=== PATIENT | female | born 1990 | race Caucasian/White ===

== ENCOUNTER 2022-08-14 18:19 | Emergency (ER) | payer OTHER, SELFPAY ==
[2022-08-14 18:25] VITALS: BP 141/93; PULSE 91; RESP 18; TEMP 37; O2SAT 99
--- NOTE | 2022-08-14 18:34 | ED.EAR ---
HPI - Ear Problem General Chief complaint: Ear Stated complaint: left Ear Time Seen by Provider: 08/14/22 18:25 Source: patient and RN notes reviewed History of Present Illness HPI Narrative: Patient is a 31-year-old female who presents to urgent care with complaints of left ear muffling and discomfort. Patient states that she is put water peroxide in it and is now noticing some decreased hearing. Denies any other upper respiratory complaints or fever. No other acute complaints. No acute distress noted. Patient aware of the plan care. Some parts of this dictation were generated by voice recognition software and may contain typographical and/or grammatical inaccuracies. Related Data Home Medications Medication Instructions Recorded Confirmed albuterol sulfate 90 mcg/actuation 2 puff inhalation Q4-6H PRN 08/14/22 08/14/22 aerosol inhaler Shortness Of Breath budesonide-formoterol HFA 160 2 puff inhalation DAILY 08/14/22 08/14/22 mcg-4.5 mcg/actuation aerosol inhaler (Symbicort) buspirone 10 mg tablet 10 mg PO QID 08/14/22 08/14/22 lithium carbonate 300 mg 300 mg PO QID 08/14/22 08/14/22 tablet,extended release Allergies Allergy/AdvReac Type Severity Reaction Status Date / Time tramadol AdvReac Mild Nausea Verified 08/14/22 18:31 Review of Systems Review of Systems: CONSTITUTIONAL: Denies fever, chills, or sweats. EYES: Denies visual changes, redness, or discharge. ENT: Denies rhinorrhea, congestion, sore throat. Reports of left otalgia with decreased hearing CARDIOVASCULAR: Denies chest pain, palpitations, or edema. RESPIRATORY: Denies cough or dyspnea. GASTROINTESTINAL: Denies abdominal pain, nausea, vomiting, or diarrhea. GENITOURINARY: Denies dysuria or hematuria. SKIN: Denies rash or itching. MUSCULOSKELETAL: Denies back pain, joint pain, or myalgia. NEUROLOGIC: Denies headache, numbness, or weakness. All other systems reviewed are negative, except as documented in HPI. PMFSH Comments At the time of my signature, I reviewed and agree with the nursing past medical, surgical, social, and family history. There is no relevant family history pertinent to the patient complaint. Exam Narrative: GENERAL: This is a well-nourished, well-developed patient, in no apparent distress. HEAD: normocephalic, atraumatic. EYES: PERRL. Sclera clear/white. Vision is grossly intact. EARS: External ears normal, right auditory canals clear and without drainage, unable to visualize left TM due to cerumen impaction. Right TM normal without perforation. Hearing grossly intact. NOSE: External nose normal with no obvious nasal discharge, nares without redness, no rhinorrhea. THROAT: Mucous membranes moist NECK: Neck supple SKIN: warm, intact with no suspicious lesions or rash, good texture and turgor. NEURO: awake, alert, and oriented to person, place and time. There were no obvious focal neurologic abnormalities. EXTREMITIES: No clubbing, cyanosis, or edema. Course Course Level of Care: Express Care Visit Vital Signs Vital signs: Vital Signs Temperature 98.6 F 08/14/22 18:25 Pulse Rate 91 08/14/22 18:25 Respiratory Rate 18 08/14/22 18:25 Blood Pressure 141/93 H 08/14/22 18:25 Pulse Oximetry 99 08/14/22 18:25 Oxygen Delivery Room Air 08/14/22 18:25 Temperature 98.6 F 08/14/22 18:25 Pulse Rate 91 08/14/22 18:25 Respiratory Rate 18 08/14/22 18:25 Blood Pressure 141/93 H 08/14/22 18:25 Pulse Oximetry 99 08/14/22 18:25 Oxygen Delivery Room Air 08/14/22 18:25 Reviewed- Patient is informed that they may have pre-hypertension or hypertension based on a blood pressure reading in the department. I recommend the patient call the primary care provider listed on their discharge instructions or a physician of their choice this week to arrange follow-up for further evaluation of possible pre-hypertension or hypertension. Procedures Ear Wax Removal Left Ear: Cerumenolytic Used: ot
== END 2022-08-14 19:00 | disposition home or self-care (01) ==
PROVIDERS: Emergency Provider Nurse Practitioner Family; PCP Nurse Practitioner Family
DX: H66.92 Otitis media, unspecified, left ear (principal); H61.22 Impacted cerumen, left ear; F41.9 Anxiety disorder, unspecified; F31.9 Bipolar disorder, unspecified
CPT/HCPCS: 69210; 99203; G0463

== ENCOUNTER 2024-02-11 16:03 | Emergency (ER) | payer OTHER, SELFPAY ==
[2024-02-11 16:10] VITALS: BP 155/91; PULSE 95; RESP 16; TEMP 36.9; O2SAT 98
--- NOTE | 2024-02-11 16:33 | ED.EAR ---
HPI - Ear Problem General Chief complaint: Ear Stated complaint: right ear Time Seen by Provider: 02/11/24 16:28 Source: patient, RN notes reviewed and old records reviewed Mode of arrival: ambulatory Limitations: no limitations History of Present Illness HPI Narrative: 33 year old female presents to [facility] care with complaints of 3 day history of right ear pain with no drainage from her ear noted. Patient reports that she has pain which is sharp at times, pressure to her right ear which is constant, has taken Tylenol and Ibuprofen for her discomfort without relief. Patient reports no fevers or any other ill symptoms. MD Complaint: ear pain and other (right ) Location: right ear Duration: constant Severity: moderate Discharge from ear: Reports no Treatment prior to arrival: oral analgesic (Tylenol/ibuprofen) Related Data Home Medications Medication Instructions Recorded Confirmed albuterol sulfate 90 mcg/actuation 2 puff inhalation Q4-6H PRN 08/14/22 02/11/24 aerosol inhaler Shortness Of Breath buspirone 10 mg tablet 10 mg PO QID 08/14/22 02/11/24 lithium carbonate 300 mg 300 mg PO QID 08/14/22 02/11/24 tablet,extended release cholecalciferol (vitamin D3) 10 10 mcg PO DAILY 02/11/24 02/11/24 mcg (400 unit) capsule (Vitamin D3) ferrous sulfate 325 mg (65 mg mg 02/11/24 iron) tablet (Iron (ferrous sulfate)) magnesium 200 mg tablet 200 mg PO DAILY 02/11/24 02/11/24 nicotine 21 mg/24 hr daily See Rx Instructions .Route .COMPLEX 02/11/24 02/11/24 transdermal patch Allergies Allergy/AdvReac Type Severity Reaction Status Date / Time tramadol AdvReac Mild Nausea Verified 02/11/24 16:21 Review of Systems Review of Systems: CONSTITUTIONAL: Denies malaise, chills, sweats, or fever. EYES: Denies visual changes, redness, or discharge. ENT: Reports no rhinorrhea, congestion, sinus pain, positive for sharp pain and pressure to right ear, no sore throat. CARDIOVASCULAR: Denies chest pain, palpitations, or edema. RESPIRATORY: Reports no cough.? Denies dyspnea. GASTROINTESTINAL: Denies abdominal pain, nausea, vomiting, diarrhea SKIN: Denies rash or itching. MUSCULOSKELETAL: Denies myalgia. NEUROLOGIC: Denies headache. 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 There is no relevant family history pertinent to the presenting complaint Exam Narrative: GENERAL: Well-appearing, well-nourished, and in no acute distress. HEAD: Normocephalic EYES: PERRLA, conjunctivae clear ENT: Nares clear, turbinates edematous and erythematous, clear discharge. Mucous membranes moist.Right TM with redness and bulging, Left TM pearly landaverde with dull light reflex bilaterally; no tragal tenderness. Oropharynx erythematous without lesions. Tonsils not enlarged and without exudate, no drooling, no hoarseness, no trismus, uvula midline. NECK: Supple. No lymphadenopathy CHEST: Clear to auscultation, breath sounds equal. No wheezing, rhonchi, rales, or stridor. No respiratory distress, speaks in full sentences SAO2 98% on room air no cough noted. HEART: Regular rate and rhythm. No murmur heard. SKIN: Warm, dry, no rash. NEURO: A
== END 2024-02-11 16:45 | disposition home or self-care (01) ==
PROVIDERS: Emergency Provider Registered Nurse; PCP Nurse Practitioner Family
DX: H66.91 Otitis media, unspecified, right ear (principal); F17.210 Nicotine dependence, cigarettes, uncomplicated; J45.909 Unspecified asthma, uncomplicated; E03.9 Hypothyroidism, unspecified; F41.9 Anxiety disorder, unspecified; F31.9 Bipolar disorder, unspecified
CPT/HCPCS: 99213; G0463

== ENCOUNTER 2024-10-24 08:05 | Emergency (ER) | payer OTHER, SELFPAY ==
--- NOTE | ~2024-10-24 | XR_ITS ---
EXAMINATION: XR chest 2V DATE: 10/24/2024 08:40 INDICATION: Cough TECHNIQUE: PA and lateral views of the chest were obtained. COMPARISON: None FINDINGS: A pleural parenchymal scarring at the lateral right lung base with blunting at the costophrenic angle but not the posterior sulcus. No focal airspace opacities, pulmonary edema, pleural effusion or pneu mothorax. Mild thoracic spondylosis with chronic appearing mild anterior wedging at T8, T11 and T12. IMPRESSION: 1. No acute cardiopulmonary disease. Reviewed, dictated and finalized at location A.
--- OUTSIDE RECORDS SUMMARY | 2024-10-24 08:07 | XMS_ITS | Encounter Summary ---
Author Organization [facility] Address [address] [place] [address] Phone Care Team Providers Care Compensation/Benefits Specialist Name Role Phone Gisele, Cornelia Denis APRN, APPAREL CUTTER Primary Care Provider Esther Cleary APRN, LACEY Unavailable Encounter Details Date Type Department Care Team (Latest Contact Info) Description 10/12/2024 Results Follow-Up [facility] Oncology Services [address] [place] [id number] Tiffanie Sosa Gloria, PAC [address] [place] [address] ANTINUCLEAR ANTIBODY (REZA), TITER IF POS, IMMUNOFIXATION W/ ELECTROPHORESIS SERUM, PERIPHERAL BLOOD, FLOW CYTOMETRY, Additional followed-up results: 4 Social History Tobacco Use Types Packs/Day Years Used Date Smoking Tobacco: Former Cigarettes 1 14 0 07/2024 - 2001 Smokeless Tobacco: Never Alcohol Use Standard Drinks/Week Comments Yes 0 (1 standard drink = 0.6 oz pur e alcohol) ocassionally Sexually Active Control Partners Comments Yes Male Comments No Sex and Gender Information Value Date Recorded Sex Assigned at Not on file Legal Sex Female 8:50 PM CDT Gender Identity Not on file Sexual Orientation Not on file documented as of this encounter Plan of Treatment Upcoming Encounters Date Type Department Care Team (Late st Contact Info) Description 10/25/2024 10:00 AM CDT [facility] [address] [place] [phone] Tiffanie Sosa, HARISH [address] [place] [address] Discharge Disposition: Discharged to home or Selfcare 11/01/2024 8:30 AM CDT Office [facility] [address] [place] [address] Esther Cleary APRN, LACEY [address] [address] documented as of this encounter Visit Diagnoses Not on filedocumented in this encounter Care Teams Compensation/Benefits Specialist Relationship Specialty Start Date End Date Cornelia Jaquez APRN, LACEY [address] [place] [address] PCP - General Advanced Practice Nurse 03/04/23 Esther Cleary APRN, LACEY [address] [address] Nurse Practitioner Advanced Practice Nurse 08/02/24 documented as of this encounter
--- OUTSIDE RECORDS SUMMARY | 2024-10-24 08:07 | XMS_ITS | Encounter Summary ---
Author Organization [facility] Address [address] [facility] [facility] [place] [address] Phone Care Team Providers Care Camera Person Name Role Phone Cornelia Jaquez APRN, CNP Primary Care Provider Esther Cleary APRN, CNP Unavailable Encounter Details Date Type Department Care Team (Late st Contact Info) Description 07/22/2023 Telephone [facility] Oncology Services [address] [place] [phone] Tiffanie Sosa Gloria, PAC [address] [place] [address] Social History Tobacco Use Types Packs/Day Years Used Date Smoking Tobacco: Every Day Cigarettes 1 14 Smokeless Tobacco: Never Alcohol Use Standard Drinks/Week Comments Yes 0 (1 standard drink = 0.6 oz pur e alcohol) ocassionally Sexually Active Control Partners Comments Yes Male Comments No Sex and Gender Information Value Date Recorded Sex Assigned at Not on file Legal Sex Female 8:50 PM CDT Gender Identity Not on file Sexual Orientation Not on file documented as of this encounter Miscellaneous Notes * Telephone Encounter - Joanne Aparicio - 07/22/2023 11:32 AM CST I reached out to the patient leaving a voicemail to schedule a follow up after her completed video visit on 07/21/23. I was informed the patient still had further questions regarding labs/ treatment. ESS RIGGER documented in this encounter Plan of Treatment Upcoming Encounters Date Type Department Care Team (Late st Contact Info) Description 10/25/2024 10:00 AM CDT [facility] [address] [place] [address] Tiffanie Sosa Gloria, PAC [address] [place] [address] Discharge Disposition: Discharged to home or Selfcare 11/01/2024 8:30 AM CDT Office Visit [facility] Medical [facility] - Pulmonology & Sleep Medicine [facility] [address] [place] [address] Esther Cleary APRN, LABORATORY ASST [address] [address] documented as of this encounter Visit Diagnoses Not on filedocumented in this encounter Additional Health Concerns Infection Onset Date Last Indicated Resolved Time C. difficile Rule-Out 04/02/2024 04/02/20242023 1:59 PM CDT C. difficile Rule-Out 04/03/2024 04/03/20242023 12:17 PM CDT C. difficile 04/03/2024 04/03/2024 07/02/2024 12:1 6 AM HARNESS RIGGER documented as of this encounter Care Teams Camera Person Relationship Specialty Start Date End Date Cornelia Jaquez APRN, LABORATORY ASST [address] [place] [address] PCP - General Advanced Practice Nurse 03/04/23 Esther Cleary APRN, LABORATORY ASST [address] [address] Nurse Practitioner Advanced Practice Nurse 08/02/24 documented as of this encounter
--- OUTSIDE RECORDS SUMMARY | 2024-10-24 08:07 | XMS_ITS | Encounter Summary ---
Author Organization [facility] [email or web address] [facility] Care Team Providers Care English Division Chair Name Role Phone GiseleCornelia silverio Adeel BARAJAS, LACEY Primary Care Provider Esther Cleary APRN, LACEY Unavailable [phone] Encounter Details Date Type Department Care Team (Latest Contact Info) Description 10/23/2024 Travel Social History Tobacco Use Types Packs/Day Years [...] Description 10/25/2024 10:00 AM CDT Office Visit [facility] Oncology Services [address] [place] [address] Tiffanie Sosa Gloria, PAC [address] [place] [address] Discharge Disposition: Discharged to home or Selfcare 11/01/2024 8:30 AM CDT [facility] - Pulmonology & Sleep Medicine [facility] [address] [place] [address] Esther Cleary APRN, LACEY [address] [address] documented as of this encounter Visit Diagnoses Not on filedocumented in this encounter Care Teams English Division Chair Relationship Specialty Start Date End Date Cornelia Jaquez APRN, LACEY [address] [place] [address] PCP - General Advanced Practice Nurse 03/04/23 Esther Cleary APRN, CNP [address] [address] Nurse Practitioner Advanced Practice Nurse 08/02/24 documented as of this encounter
--- OUTSIDE RECORDS SUMMARY | 2024-10-24 08:07 | XMS_ITS | Referral Summary ---
Author Organization [facility] al Address [address] [place] [address] Care Team Providers Care Medical Officer Name Role Phone Chico Leger MD Unavailable [phone] Francis Cardoso MD Primary Care Provider [phone] Encounters Date Type Department Care Team Description 09/13/2024 8:06 AM CDT - 09/13/2024 10:25 AM CDT Emergency [facility] Emergency Department [address] [place] [address] Pipo Smith MD Viral syndrome (Primary Dx) Discharge Disposition: Discharge to home or self care 08/05/2024 8:34 AM OIL BURNER TECHNICIAN - 08/05/2024 11:59 PM OIL BURNER TECHNICIAN Hospital Encounter [facility] - Breast Imaging [address] [place] [id number] Abnormal mammogram; Oth abn and inconclusive findings on dx imaging of breast Discharge Disposition: Discharge to home or self care 08/05/2024 8:30 AM OIL BURNER TECHNICIAN Office Visit [facility] Surgery [address] [place] [phone] Sandi Tolentino NP Abnormal mammogram of left breast (Primary Dx); Other abnormal and inconclusive findings on diagnostic imaging of breast 08/04/2024 Orders Only [facility] Surgery [address] [place] [phone] Sandi Tolentino NP Oth abn and inconclusive findings on dx imaging of breast (Primary Dx) 08/04/2024 Telephone [facility] Surgery [address] [place] [address] [address] [place] [address] Connie Carver, NINOSKA from Last 3 Months Allergies Active Allergy Reactions Criticality Noted Date Comments Divalproex Rash Medium 10/31/2014 Rice Itching,Anaphylaxis High 07/14/2018 Tramadol Hives Medium 01/26/2020 Trazodone Hives Medium 01/26/2020 Medications albuterol HFA (PROVENTIL HFA,VENTOLIN HFA) 90 mcg/actuation inhalerIndicati ons:Bronchospas m Prevention Inhale 2 puffs every 6 (six) hours as needed for wheezing Active lithium ER (LITHOBID) 300 mg CR tabletIndicatio ns:Mixed Bipolar I Disorder Take 2 tablets (600 mg total) by mouth 2 (two) times a day with meals 120 tablet 0 Active busPIRone (BUSPAR) 10 mg tabletIndicatio ns:Generalized Anxiety Disorder Take 1 tablet (10 mg total) by mouth 2 (two) times a day Active Symbicort 160-4.5 mcg/actuation inhaler Inhale 1 puff 2 (two) times a day 3 Active Vitamin D2 1,250 mcg (50,000 unit) capsule Take 1 capsule (50,000 Units total) by mouth once a week 3 Active aspirin 81 mg enteric coated tablet Take 1 tablet (81 mg total) by mouth daily Active lisinopriL (PRINIVIL,ZESTR IL) 10 mg tablet Take 1 tablet (10 mg total) by mouth daily Active magnesium gluconate (MAGONATE) 27.5 mg magne- sium (500 mg) tabletIndicatio ns:hypomagnesem ia Take 1 tablet (500 mg total) by mouth 2 (two) times a day Active calcium carbonate-vitam in D3 1,500 mg (600 mg elemental)-500 unit capsule Take by mouth Act yusuf vitamin E 200 unit capsule Take 1 capsule (200 Units total) by mouth daily Active ferrous sulfate 325 mg (65 mg of elemental iron) tabletIndicatio ns:Iron Deficiency Anemia Take 1 tablet (65 mg of elemental iron total) by mouth 3 (three) times a day with meals Active multivit-minera v-ssmn-cbqrjq tablet Take by mouth Active omega-3 fatty acids-fish oil 300-1,000 mg capsule Take 2 capsules (2 g total) by mouth daily Active fluticasone-ume clidin-vilanter (TRELEGY ELLIPTA) 100-62.5-25 mcg inhaler Inhale 1 puff daily 5 Active Active Problems Problem Noted Date Diagnosed Date 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 NEAL came with florid cat and recent history of admission to OSH. She is chronically on methadone for her opioid use disorder. She remains quite manic and psychotic and given ongoing agitation, we will titrate up chlorpromazine dose and cross taper with Li2CO3 and with plans to wean off oxcarbazepine. - chlorpromazine to 300 mg TID PO - Loaded with paliperidone Sustenna 234 mg IM 83 and 156 mg 8/6 - Continue Li2CO3 ER 450 mg BID PO (CrCl 135.2). [place] level pending. - Oxcarbazepine 300 mg BID discontinued (02/07) - PRNs: chlorpromazine and lorazepam PO or IM for agitation Assessment & Plan (02/08/2020 9:38 AM CDT): Ms. NEAL came with florid cat and recent history of admission to OSH. She is chronically on methadone for her opioid use disorder. She remains quite manic and psychotic and given ongoing agitation, we will titrate up chlorpromazine dose and cross taper with Li2CO3 and with plans to wean off oxcarbazepine. - Now discontinued: lamotrigine (effect in cat is negligible) and olanzapine (she has not responded to it.) Stopped risperidone. - Increased chlorpromazine to 250 mg TID PO - Loaded with paliperidone Sustenna 234 mg IM 83 and 156 mg 8/6 - Continue Li2CO3 ER 450 mg BID PO (CrCl 135.2) - Oxcarbazepine 300 mg BID discontinued (02/07) - PRNs: chlorpromazine and lorazepam PO or IM for agitation - Precautions - Int Med recs: on apixaban for hx of PE - SW intervention - Therapeutic milieu Severe opioid use disorder 01/29/2020 Assessment & Plan (02/11/2020 7:42 AM CDT): UDS is positive for fentanyl, benzodiazepine, and methadone in addition to marijuana. Pt minimizes use but meets criteria for severe opioid use. - Methadone 110 mg QAM PO - Symptomatic treatment as needed Assessment & Plan (02/07/2020 12:29 PM CDT): UDS is positive for fentanyl, benzodiazepine, and methadone in addition to marijuana. Pt minimizes use but meets criteria for severe opioid use. - Methadone 110 mg QAM PO - Symptomatic treatment as needed Marijuana use 01/29/2020 Anxiety 11/13/2013 Overview (10/04/2016): Anxiety Panic disorder 11/13/2013 Overview (10/04/2016): PANIC DISORDER ADHD Pulmonary embolism Assessment & Plan (02/11/2020 7:42 AM CDT): Recently diagnosed right lower lobe pulmonary emboli via CT angiogram was done on 01/20/2020. Patient on Eliquis at home. -continue Eliquis 5 mg daily Assessment & Plan (02/07/2020 12:34 PM CDT): Recently diagnosed right lower lobe pulmonary emboli via CT angiogram was done on 01/20/2020. Patient on Eliquis at home. -continue Eliquis 5 mg daily Elevated troponin Methadone dependence Pulmonary nodule Obesity Resolved Problems Problem Noted Date Diagnosed Date Resolved Date Other chest pain 02/07/2020 Immunizations Immunization Administration Dates Next Due DTP 01/23/1994, 3,01/20/1992,08/30/1991,0 12/18/1990,01/29/1990 Hep B, Adolescent or Pediatric 10/10/1999,1998,01/23/1994 HiB 03/23/1991 MMR 01/23/1994,03/23/1991 OPV 01/23/1994, 2,08/30/1991,12/18/1990,0 01/29/1990 Tdap 07/29/2015 Social History Tobacco Use Types Packs/Day Years Used Date Smoking Tobacco: Every Day Cigarettes Smokeless Tobacco: Never Tobacco Cessation:Ready to Q uit: Yes; Counseling Given: Yes Alcohol Use Standard Drinks/Week Comments No 0 (1 standard drink = 0.6 oz pur e alcohol) Humiliation, Afraid, Rape, and Kick questionnair e Answer Date Recorded Within the last year, have y ou been afraid of your partner or ex-partner? Patient declined 01/30/2020 Within the last year, have y ou been humiliated or emotionally abused in other ways by your partner or ex-partner? Patient declined 01/30/2020 Within the last year, have y ou been kicked, hit, slapped, or otherwise physically hurt by your partner or ex-partner? Patient declined 01/30/2020 Within the last year, have y ou been raped or forced to have any kind of sexual activity by your partner or ex-partner? Patient declined 01/30/2020 Social Connection and Isolation Panel [NHANES] A nswer Date Recorded In a typical week, how many times do you talk on the phone with family, friends, or neighbors? Patient declined 01/30/2020 How often do you get togethe r with friends or relatives? Patient declined 01/30/2020 How often do you attend jew or congregational serv ices? Patient declined 01/30/2020 Do you belong to any clubs o r organizations such as jew groups, unions, fraternal or athletic groups, or school groups? Patient declined 01/30/2020 How often do you attend meet ings of the clubs or organizations you belong to? Patient declined 01/30/2020 Are you , , di vorced, , never , or living with a partner? Patient declined 01/30/2020 AUDIT-C Answer Date Recorded Q1: How often do you have a drink containing alc ohol? Monthly or less 10/22/2022 Q2: How many drinks containi ng alcohol do you have on a typical day when you are drinking? 1 or 2 10/22/2022 Q3: How often do you have si x or more drinks on one occasion? Never 10/22/2022 Overall Financial Resource Strain (CARDIA) Answe r Date Recorded How hard is it for you to pa y for the very basics like food, housing, medical care, and heating? Patient declined 01/30/2020 Hunger Vital Sign Answer Date Recorded Within the past 12 months, y ou worried that your food would run out before you got the money to buy more. Patient declined Within the past 12 months, t he food you bought just didn't last and you didn't have money to get more. Patient declined 07/2019 Personal Safety Answer Date Recorded Have you ever been in or are you currently in a harmful physical or emotional relationship or is someone making you feel afraid or unsafe? Denies 09/13/2024 Comments No Sex and Gender Information Value Date Recorded Sex Assigned at Not on file Legal Sex Female 12:44 AM OIL BURNER TECHNICIAN Gender Identity Not on file Sexual Orientation Not on file Last Filed Vital Signs Vital Sign Reading Time Taken Comments Blood Pressure 147/78 09/13/2024 10:24 AM CDT Pulse 92 09/13/2024 10:24 AM CDT Temperature 36.8 C (98.2 F) 09/13/2024 8:02 AM CDT Respiratory Rate 20 09/13/2024 10:24 AM CDT Oxygen Saturation 97% 09/13/2024 10:24 AM CDT Inhaled Oxygen Concentration - - Weight 122 kg (269 lb) 09/13/2024 8:02 AM CDT Height 172.7 cm (5' 8 ) 09/13/2024 8:02 AM CDT Body Mass Index 40.9 09/13/2024 8:02 AM CDT Plan of Treatment Not on file Procedures Procedure Name Priority Date/Time Associated Diagnosis Comments XR CHEST 1 VIEW ED 09/13/2024 8:23 AM CDT STREPTOCOCCUS GROUP A PCR STAT 09/13/2024 8:05 AM CDT INFLUENZA A/B, RSV, AND COVID-19 PCR STAT 09/13/2024 8:05 AM CDT DIAGNOSTIC MAMMOGRAM LEFT W VENU Schedule Routine, Read Routine (OP Routine) 08/05/2024 10:00 AM OIL BURNER TECHNICIAN Oth abn and inconclusive findings on dx imaging of breast DIAGNOSTIC MAMMOGRAM LEFT W VENU Schedule Routine, Read Routine (OP Routine) 08/05/2024 10:00 AM OIL BURNER TECHNICIAN Abnormal mammogram HEPATITIS C ANTIBODY STAT 01/27/2020 5:29 AM CDT from Last 3 Months or Most Recently Relevant to Health Maintenance Results * XR Chest 1 Vw Portable (09/13/2024 8:23 AM CDT) Anatomical Region Laterality Modality Body, Chest N/A Computed Radiogr aphy 09/13/2024 8:58 AM CDT Narrative 09/13/2024 9:00 AM CDT EXAM DESCRIPTION: XR CHEST 1 VIEW REASON FOR STUDY: Shortness of breath Pt to ED for c/o sore throat, SOB, cough, fatigue and dizziness since yesterday. HX of asthma, pt did try inhaler and breathing tx without relief. TECHNIQUE: Single-view COMPARISON: 06/03/2024 FINDINGS: Central vascularity have normal caliber. Aortic arch well-defined on the left. Lungs are well expanded without consolidation, effusion or pneumothorax. IMPRESSION: No acute findings. THIS IS AN ELECTRONICALLY VERIFIED FINAL REPORT 09/13/2024 9:00 AM - Electronically signed by Darin Dueñas M.D. RB: KT Report ID: [id number] Reading Location: [id number] Procedure Note Darin Dueñas MD - 09/13/2024 EXAM DESCRIPTION: XR CHEST 1 VIEW REASON FOR STUDY: Shortness of breath Pt to ED for c/o sore throat, SOB, cough, fatigue and dizziness since yesterday. HX of asthma, pt did try inhaler and breathing tx withoutrelief. TECHNIQUE: Single-view COMPARISON: 06/03/2024 FINDINGS: Central vascularity have normal caliber. Aortic arch well-defined on the left. Lungs are well expanded without consolidation, effusion or pneumothorax. IMPRESSION: No acute findings. THIS IS AN ELECTRONICALLY VERIFIED FINAL REPORT 09/13/2024 9:00 AM - Electronically signed by Darin Dueñas M.D. RB: KT Report ID: [id number] Reading Location: [place] [address] Pipo Smith MD IMG XR PROCEDURES Final Result * Influenza A/B, RSV, and COVID-19 PCR Nasopharyngeal (09/13/2024 8:05 AM CDT) COVID-19 RNA Negative Negative Influenza A RNA Negative Negative [facility] ([facility]) Influenza B RNA Negative Negative [facility] ([facility]) RSV RNA Negative [facility] ([facility]) Comment: Interpretive data: Testing performed by [facility]. This test is performed using the [employer] Xpert Xpress CoV-2/Flu/RSV plus assay. This is a multiplex, real- time reverse transcriptase PCR assay intended for the qualitative detection of nucleic acid from SARS-CoV-2, influenza A, influenza B, and respiratory syncytial virus. This assay has been cleared by the [place] Food and Drug administration. The performance characteristics have been verified by the [facility]. Results must be considered in the clinical context, and a negative result does not rule out infection. Interpretive Data last revised 2023 Nasopharyngeal 09/13/2024 8: 05 AM CDT 09/13/2024 8:12 AM CDT Narrative [facility] ([facility]) - 09/13/2024 8:57 AM CDT Is the Patient experiencing symptoms consistent with COVID?->Yes Pipo Smith MD LAB MICROBIOLOGY - GENERAL ORD ERABLES Final Result [facility] ([place]) [facility] Department [place] [address] * Streptococcus Group A PCR Throat (09/13/2024 8:05 AM CDT) Strep A DNA Not Detected Not Detected Comment: This test is performed using the [employer] Connection Xpert Group A Streptococcal Assay. This is a qualitative, real-time PCR assay that detects Group A Strep using throat specimens from patients suspected of having streptococcal pharyngitis. This assay does not detect other beta-hemolytic streptococci including Group C or Group G. Group C and G have been associated with pharyngitis and, occasionally, acute nephritis but do not cause rheumatic fever. If suspected, order Throat Culture, Routine. This assay has been cleared by the [place] Food and Drug Administration, and its performance characteristics have been verified by the performing laboratory. Throat 09/13/2024 8:05 AM CDT 09/13/2024 8:12 AM CDT Pipo Smith MD LAB MICROBIOLOGY - GENERAL ORD ERABLES Final Result [facility] [place]) 1 [facility] Department [place] [address] * Diagnostic Mammogram Left W Venu (08/05/2024 10:00 AM OIL BURNER TECHNICIAN) Anatomical Region Laterality Modality Breast Left Mammography 08/05/2024 11:0 3 AM OIL BURNER TECHNICIAN Impressions 08/05/2024 11:30 AM OIL BURNER TECHNICIAN This is a duplicate accession number. Please see dictation of DIAGNOSTIC MAMMOGRAM LEFT W VENU ACC: [id number] for interpretation of the diagnostic mammogram performed today. Dictated by: Jourdan Gomez MD The radiology attending physician has personally reviewed this study, and had reviewed and/or edited this written report and agrees with it. Electronically signed by: Karina Winchester M.D. Narrative Procedure Note Karina Winchester MD - 08/05/2024 IMPRESSION: This is a duplicate accession number. Please see dictation of DIAGNOSTIC MAMMOGRAM LEFT W VENU ACC: [id number] for interpretation of the diagnostic mammogram performed today. Dictated by: Jourdan Gomez MD The radiology attending physician has personally reviewed this study, and had reviewed and/or edited this written report and agrees with it. Electronically signed by: Karina Winchester M.D. us Sandi Tolentino NP IMG MAMMO PROCEDURES Final Res ult * Diagnostic Mammogram Left W Venu (08/05/2024 10:00 AM OIL BURNER TECHNICIAN) Anatomical Region Laterality Modality Breast Left Mammography 08/05/2024 10:2 8 AM OIL BURNER TECHNICIAN Impressions 08/05/2024 11:30 AM OIL BURNER TECHNICIAN Unchanged probably benign LEFT breast mass. OVERALL FINAL ASSESSMENT: BI-RADS Category 3: Probably Benign. RECOMMENDATION: Recommend follow-up diagnostic breast imaging in six months with LEFT breast ultrasound. Dictated by: Jourdan Gomez MD Dictated by: Jourdan Gomez MD The radiology attending physician has personally reviewed this study, and had reviewed and/or edited this written report and agrees with it. Electronically signed by: Karina Winchester M.D. Narrative 08/05/2024 11:30 AM OIL BURNER TECHNICIAN EXAMINATION: LEFT UNILATERAL DIGITAL DIAGNOSTIC MAMMOGRAM AND DIGITAL BREAST TOMOSYNTHESIS HISTORY: Six-month follow-up of LEFT breast mass. 33-year-old woman who had bilateral breast pain evaluated at outside hospital on 03/10/2024, incidentally noted to have a probably benign LEFT breast mass. COMPARISON: Diagnostic breast imaging 03/10/2024 TECHNIQUE: Full field digital mammographic views of the LEFT breast were performed, including computer aided detection (CAD) and digital breast tomosynthesis (DBT). BREAST PARENCHYMAL COMPOSITION: There are scattered areas of fibroglandular density. MAMMOGRAM FINDINGS: There is an unchanged equal-density oval circumscribed mass in the LEFT breast 12:00, 3 cm from the nipple. No new suspicious abnormality in the LEFT breast. Procedure Note Karina Winchester MD - 08/05/2024 EXAMINATION: LEFT UNILATERAL DIGITAL DIAGNOSTIC MAMMOGRAM AND DIGITAL BREAST TOMOSYNTHESIS HISTORY: Six-month follow-up of LEFT breast mass. 33-year-old woman who had bilateral breast pain evaluated at outside hospital on 03/10/2024, incidentally noted to have a probably benign LEFT breast mass. COMPARISON: Diagnostic breast imaging 03/10/2024 TECHNIQUE: Full field digital mammographic views of the LEFT breast were performed, including computer aided detection (CAD) and digital breast tomosynthesis (DBT). BREAST PARENCHYMAL COMPOSITION: There are scattered areas of fibroglandular density. MAMMOGRAM FINDINGS: There is an unchanged equal-density oval circumscribed mass in the LEFT breast 12:00, 3 cm from the nipple. No new suspicious abnormality in the LEFT breast. IMPRESSION: Unchanged probably benign LEFT breast mass. OVERALL FINAL ASSESSMENT: BI-RADS Category 3: Probably Benign. RECOMMENDATION: Recommend follow-up diagnostic breast imaging in six months with LEFT breast ultrasound. Dictated by: Jourdan Gomez MD Dictated by: Jourdan Gomez MD The radiology attending physician has personally reviewed this study, and had reviewed and/or edited this written report and agrees with it. Electronically signed by: Karina Winchester M.D. us Sanam Mace NP IMG MAMMO PROCEDURES Final Result * Hepatitis C antibody (01/27/2020 5:29 AM CDT) Hep C Ab Nonreactive Nonreactive [facility] ([place]) Comment: Interpretive Data Nonreactive: Antibodies to HCV not detected. Does NOT exclude the possibility of recent exposure to HCV. Equivocal: Equivocal for HCV antibodies. Supplemental molecular testing will be automatically performed to determine infection status in accordance with current CDC screening recommendations. Reactive: Positive for HCV antibodies. This may represent current or past HCV infection. Supplemental molecular testing will be automatically performed to determine current infection status in accordance with current CDC screening recommendations. Interpretive data was last revised on 2019. Testing performed by: [facility], [address] [place] [address], [place]., [address] Blood specimen (specimen) 01/27/2020 5:29 AM CDT 01/27/2020 12:18 PM CDT us John Frank MD LAB MICROBIO LOGY - GENERAL ORDERABLES Edited Result - Final [facility] ([facility]) 1 [facility] Department [place] [employer] [place] [address] from Last 3 Months or Most Recently Relevant to Health Maintenance Insurance Advance Directives For more information, please contact: [phone] * Full Code (Latest Code Status on File) Date Activated Date Inactivated Comments 01/30/2020 2:28 PM 02/14/2020 4:59 PM * Full Code Date Activated Date Inactivated Comments 01/26/2020 3:29 PM 01/29/2020 5:16 PM * Full Code Date Activated Date Inactivated Comments 01/27/2019 2:39 PM 01/29/2019 12:44 PM * Full Code Date Activated Date Inactivated Comments 01/27/2019 9:46 AM 01/27/2019 2:39 PM Full CPR in case of cardiopulmonary arrest Care Teams Medical Officer Relationship Specialty Start Date End Date Francis Cardoso MD [address] [place] [address] [address] [place] [address] PCP - General Family Medicine 10/18/24 Chico Leger MD [address] [place] [address] [address] MOISE [address] [place] [address] Consulting Physician Obstetrics and Gynecology 10/22/22
--- OUTSIDE RECORDS SUMMARY | 2024-10-24 08:07 | XMS_ITS ---
Author Organization [facility] Address [address] [place] [address] Phone Care Team Providers Care Plastic Production Machine Setter Name Role Phone Cornelia Jaquez APRN, CNP Primary Care Provider Esther Cleary APRN, CNP Unavailable OnCall Chronic Condition Monitoring Status:Enrolled (Active) Start date:09/02/2023 Enrollment date:09/02/2023 Continued Care and Services Coordination
--- OUTSIDE RECORDS SUMMARY | 2024-10-24 08:07 | XMS_ITS | Encounter Summary ---
Author Organization [facility] Address [address] [place] [address] Care Team Providers Care Warehouse Material Handler Name Role Phone Unavailable Primary Care Provider Unavailabl e Reason for Visit * Reason Onset Date Comments Respiratory distress 01/20/2020 Spoke with Rosangela at Dr. Carson's office Encounter Details Date Type Department Care Team (Late st Contact Info) Description 01/20/2020 Telephone [facility] [address] [place] [address] Ana Zee, ELLIOT NO ADDRESS ON FILE Respiratory distress (Spoke with Rosangela at Dr. Carson's office) Social History Tobacco Use Types Packs/Day Years Used Date Smoking Tobacco: Every Day Cigarettes Alcohol Use Standard Drinks/Week Comments No 0 (1 standard drink = 0.6 oz pur e alcohol) Comments Unknown Sex and Gender Information Value Date Recorded Sex Assigned at Not on file Legal Sex Female 1:18 PM CDT Gender Identity Not on file Sexual Orientation Not on file COVID-19 Exposure Response Date Recorded In the last month, have you been in contact with someone who was confirmed or suspected to have Coronavirus / COVID-19? No / Unsure 01/19/2020 11:51 PM CDT documented as of this encounter Plan of Treatment Not on file documented as of this encounter Visit Diagnoses Not on filedocumented in this encounter Additional Health Concerns Infection Onset Date Last Indicated Resolved Time R/O COVID-19 01/19/2020 01/19/2020 01/20/2020 1:17 AM CDT documented as of this encounter
--- OUTSIDE RECORDS SUMMARY | 2024-10-24 08:07 | XMS_ITS | Continuity of Care Document ---
Author Name Terese Sales Address [address] [facility] [address] [place] [address] Organization Unknown Address [address] [place] [address] Medications No known medications Problems No known problems
--- OUTSIDE RECORDS SUMMARY | 2024-10-24 08:07 | XMS_ITS | Clinical Summary ---
Author Organization [facility] Address [address] [place] [address] Care Team Providers Care Electric Locomotive Crane Operator Name Role Phone Chico Leger MD Unavailable [phone] Francis Cardoso MD Primary Care Provider [phone] Allergies Active Allergy Reactions Criticality Noted Date [...] times a day with meals Active multivit-minera [id number]-[id number] tablet Take by mouth Active omega-3 fatty acids-fish oil 300-1,000 mg capsule Take 2 capsules (2 g total) by mouth daily Active fluticasone-ume clidin-vilanter (TRELEGY ELLIPTA) 100-62.5-25 mcg inhaler Inhale 1 puff daily 5 Active Active Problems Problem Noted Date Diagnosed Date 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 STALLINGS came with florid cat and recent history [...] Loaded with paliperidone Sustenna 234 mg IM 01/30 and 156 mg 02/02 - Continue Li2CO3 ER 450 mg BID PO (CrCl 135.2). Lyons level pending. - Oxcarbazepine 300 mg BID discontinued (02/07) - PRNs: chlorpromazine and lorazepam PO or IM for agitation Assessment & Plan (02/08/2020 9:38 AM CDT): Ms. STALLINGS came with florid cat and recent history [...] Loaded with paliperidone Sustenna 234 mg IM 01/30 and 156 mg 02/02 - Continue Li2CO3 ER 450 mg BID [...] Date Resolved Date Other chest pain 02/07/2020 Encounters Date Type Department Care Team Description 09/13/2024 8:06 AM CDT - 09/13/2024 10:25 AM CDT Emergency [facility] Emergency Department [address] [place] [address] Pipo Smith MD Viral syndrome (Primary Dx) Discharge Disposition: Discharge to home or self care 08/05/2024 8:34 AM CRYSTAL GRINDER - 08/05/2024 11:59 PM CRYSTAL GRINDER Hospital Encounter [facility] - Breast Imaging [address] [place] [address] Floor [address] [place] [address] Abnormal mammogram; Oth abn and inconclusive findings on dx imaging of breast Discharge Disposition: Discharge to home or self care 08/05/2024 8:30 AM CRYSTAL GRINDER Office Visit [facility] Surgery [address] [place] [address] [address] [place] [phone] Sandi Tolentino NP Abnormal mammogram of left breast (Primary Dx); Other abnormal and inconclusive findings on diagnostic imaging of breast 08/04/2024 Orders Only [facility] Surgery [address] [place] [address] [address] [place] [phone] Sandi Tolentino NP Oth abn and inconclusive findings on dx imaging of breast (Primary Dx) 08/04/2024 Telephone [facility] Surgery [address] [place] [address] [address] [place] [phone] Connie Carver CMA from Last 3 Months Immunizations Immunization Administration Dates Next Due DTP 01/23/1994, 3,01/20/1992,08/30/1991,0 12/18/1990,01/29/1990 Hep B, Adolescent or Pediatric 10/10/1999,1998,01/23/1994 HiB 03/23/1991 MMR 01/23/1994,03/23/1991 OPV 01/23/1994, 2,08/30/1991,12/18/1990,0 01/29/1990 Tdap 07/29/2015 Medical History Medical History Date Comments Disorder of thyroid Thyroid dise ase Depression Depression Adhd Asthma Cough Seizures (HCC) ADHD (attention deficit hyperactivity disorder) Bipolar disorder (HCC) Anxiety Panic attack Smoking High blood pressure Headache Family History Medical History Relation Name Comments Hypertension Maternal Grandfather Diabetes Maternal Grandmother Cancer Mother Other Other Family history of Polycystic ovaries; Cancer Sister Ovarian cancer Sister Breast cancer Neg Hx Thyroid cancer Neg Hx Relation Name Status Comments Maternal Grandfather Maternal Grandmother Mother Other Sister Social History Tobacco Use Types Packs/Day Years [...] declined 01/30/2020 How often do you attend rastafari or mormon serv ices? Patient declined 01/30/2020 Do you belong to any clubs o r organizations such as rastafari groups, unions, fraternal or athletic groups, or [...] on file Legal Sex Female 12:44 AM CRYSTAL GRINDER Gender Identity Not on file Sexual Orientation Not on file Obstetrics History Para Term AB IAB SAB Ectopic Multiple Livin g Live Births 5 5 2 3 0 5 1 Date Outcome GA Total Labor Labor/2nd/3rd Weight Sex Type Anes PTL Blanka A1 A5 Name Clin Term 2018 Term 39w 0d 0h 01m 0h 01m 3.045 kg (6 lb 11.4 oz) M CS-LT ranv Spinal N Livin g 1 1 NESTOR AGUDELO Geoffr ey Lowell, MD Complications:None Delivery Location:This Facil ity ([facility]) Last Filed Vital Signs Vital Sign Reading [...] 09/13/2024 8:02 AM CDT Plan of Treatment Health Maintenance Due Date Last Done Comments Cervical Cancer Screening 1988 Depression Screening 1988 Varicella Vaccines (1 of 2 - 13+ 2-dose series) 2001 Regular Well Visit/Exam 18-64 2006 Pneumococcal vaccine <65 (1 of 2 - PCV) 11/21/2007 Influenza Vaccine (Season Ended) 2025 DTaP/Tdap/Td Vaccine (7 - Td or Tdap) 07/29/2025 07/29/2015, 01/23/1994, 11/07/1992, Additional history exists Hepatitis B Screening Completed 10/10/1999 , 04/16/1999, 01/23/1994 Hepatitis C Screening Completed 01/27/2020 HPV Vaccines Aged Out No longer eligi ble based on patient's age to complete this topic Procedures Procedure Name Priority Date/Time Associated Diagnosis Comments XR CHEST 1 VIEW ED 09/13/2024 8:23 AM CDT STREPTOCOCCUS GROUP A PCR STAT 09/13/2024 8:05 AM CDT INFLUENZA A/B, RSV, AND COVID-19 PCR STAT 09/13/2024 8:05 AM CDT DIAGNOSTIC MAMMOGRAM LEFT W VENU Schedule Routine, Read Routine (OP Routine) 08/05/2024 10:00 AM CRYSTAL GRINDER Oth abn and inconclusive findings on dx imaging of breast DIAGNOSTIC MAMMOGRAM LEFT W VENU Schedule Routine, Read Routine (OP Routine) 08/05/2024 10:00 AM CRYSTAL GRINDER Abnormal mammogram HEPATITIS C ANTIBODY STAT 01/27/2020 [...] Electronically signed by Darin Dueñas M.D. RB: RB Report ID: [id number] Reading Location: [id number] Procedure Note Darin Dueñas MD - 09/13/2024 [...] Electronically signed by Darin Dueñas M.D. RB: RB Report ID: [id number] Reading Location: [id number] Pipo Smith MD IMG XR PROCEDURES Final Result * Influenza A/B, RSV, and COVID-19 PCR Nasopharyngeal (09/13/2024 8:05 AM CDT) Pathologist [facility] COVID-19 RNA Negative Negative Influenza A RNA Negative Negative [facility] ([place]) Influenza B RNA Negative Negative [facility] ([place]) RSV RNA Negative Negative [facility] ([place]) Comment: Interpretive data: Testing performed by [facility]. This test is performed using the SDI Xpert Xpress CoV-2/Flu/RSV plus assay. This is a multiplex, real- time reverse transcriptase PCR assay intended for the qualitative detection of nucleic acid from SARS-CoV-2, influenza A, influenza B, and respiratory syncytial virus. This assay has been cleared by the [place] Food and Drug administration. The performance characteristics have been verified by the [facility]. Results must be considered in the clinical context, and a negative result does not rule out infection. Interpretive Data last revised 2023 Nasopharyngeal 09/13/2024 8: 05 AM CDT 09/13/2024 8:12 AM CDT Narrative [facility] DOWD ([place]) - 09/13/2024 8:57 AM CDT Is the Patient experiencing symptoms consistent with COVID?->Yes Pipo Smith MD LAB MICROBIOLOGY - GENERAL ORD ERABLES Final Result [facility] 1 [facility] Department [place] [address] * Streptococcus Group A PCR Throat (09/13/2024 8:05 AM CDT) Strep A DNA Not Detected Not Detected Comment: This test is performed using the SDI Xpert Group A Streptococcal Assay. This is [...] GENERAL ORD ERABLES Final Result [facility] [place]) 1 [facility] Department [place] [address] * Diagnostic Mammogram Left W Venu (08/05/2024 10:00 AM CRYSTAL GRINDER) Anatomical Region Laterality Modality Breast Left Mammography 08/05/2024 11:0 3 AM CRYSTAL GRINDER Impressions 08/05/2024 11:30 AM CRYSTAL GRINDER This is a duplicate accession number. Please see dictation of DIAGNOSTIC MAMMOGRAM LEFT W VENU ACC: [id number] for interpretation of the diagnostic mammogram performed [...] of DIAGNOSTIC MAMMOGRAM LEFT W VENU ACC: [id number] for interpretation of the diagnostic mammogram performed today. Dictated by: Jourdan Gomez MD The radiology attending physician has personally reviewed this study, and had reviewed and/or edited this written report and agrees with it. Electronically signed by: Karina Winchester M.D. Sandi Tolentino NP IMG MAMMO PROCEDURES Final Res ult * Diagnostic Mammogram Left W Venu (08/05/2024 10:00 AM CRYSTAL GRINDER) Anatomical Region Laterality Modality Breast Left Mammography 08/05/2024 10:2 8 AM CRYSTAL GRINDER Impressions 08/05/2024 11:30 AM CRYSTAL GRINDER Unchanged probably benign LEFT breast mass. OVERALL [...] Karina Winchester M.D. Narrative 08/05/2024 11:30 AM CRYSTAL GRINDER EXAMINATION: LEFT UNILATERAL DIGITAL DIAGNOSTIC MAMMOGRAM AND [...] by: Karina Winchester M.D. us Sanam Mace LABOR DELIVERY SPECIALIST IMG MAMMO PROCEDURES Final Result * Hepatitis C antibody (01/27/2020 5:29 AM CDT) Hep C Ab Nonreactive Nonreactive [facility] DOWD ([place]) Comment: Interpretive Data Nonreactive: Antibodies to HCV [...] last revised on 2019. Testing performed by: [facility], [address] [place] [address]., [id number] Blood specimen (specimen) 01/27/2020 5:29 AM CDT 01/27/2020 12:18 PM CDT us John Frank MD LAB MICROBIO LOGY - GENERAL ORDERABLES Edited Result - Final AYSHA NOEMÍ ([place]) 1 [facility] Department [place] [address] from Last 3 Months or Most Recently Relevant to Health Maintenance [place] [address] [place] [address] [place] [address] Advance Directives For more information, please contact: [phone] * Full Code (Latest Code Status on [...] in case of cardiopulmonary arrest Care Teams Electric Locomotive Crane Operator Relationship Specialty Start Date End Date Francis Cardoso MD [address] [place] [address] [address] [place] [address] PCP - General Family Medicine 10/18/24 Chico Leger MD [address] [place] [address] [address] [place] [address] Consulting Physician Obstetrics and Gynecology 10/22/22
--- OUTSIDE RECORDS SUMMARY | 2024-10-24 08:07 | XMS_ITS | Encounter Summary ---
Author Organization [facility] Address [address] [place] [address] Phone Care Team Providers Care Drawing Box Tender Name Role Phone Gisele, Cornelia Denis APRN, LACEY Primary Care Provider Esther Cleary APRN, LACEY Unavailable [phone] Encounter Details Date Type Department Care Team (Late st Contact Info) Description 09/14/2024 Results Follow-Up [facility] [address] [place] [phone] Tiffanie Sosa Gloria, PAC [address] [place] [address] FOLIC ACID (FOLATE), FERRITIN, CMP (COMPREHENSIVE METABOLIC PANEL), Additional followed-up results: 3 Social History Tobacco Use Types Packs/Day Years [...] Description 10/25/2024 10:00 AM CDT Office Visit [facility] [address] [place] [phone] Tiffanie Sosa Gloria, PAC [address] [place] [address] Discharge Disposition: Discharged to home or Selfcare 11/01/2024 8:30 AM CDT Office Visit [facility] - Pulmonology & Sleep Medicine - [place] [address] [place] [address] Esther Cleary APRN, THIRD RIGGER [address] [address] documented as of this encounter Visit Diagnoses Not on filedocumented in this encounter Care Teams Drawing Box Tender Relationship Specialty Start Date End Date Cornelia Jaquez APRN, LACEY [address] [place] [address] PCP - General Advanced Practice Nurse 03/04/23 Esther Cleary APRN, LACEY [address] [address] Nurse Practitioner Advanced Practice Nurse 08/02/24 documented as of this encounter
--- OUTSIDE RECORDS SUMMARY | 2024-10-24 08:07 | XMS_ITS | Continuity of Care Document ---
Author Name Terese Sales Address [address] [facility] [address] [place] [address] Organization Unknown Address [address] [place] [address] [address] [place] [address] Problems No known problems
--- OUTSIDE RECORDS SUMMARY | 2024-10-24 08:07 | XMS_ITS | Encounter Summary ---
Author Organization [facility] Address [address] [place] [address] Phone Care Team Providers Care Chemical Engraver Name Role Phone No, Physician Primary Care Provider No, Physician Primary Care Provider [phone] Imelda Thomas MD Primary Care Provider + No, Physician Primary Care Provider [phone] Imelda Thomas MD Primary Care Provider + No, Physician Primary Care Provider [phone] Maribell, Physician Primary Care Provider [phone] Juanito Sauceda DEATH CLAIM EXAMINER Primary Care Provider + No, Physician Primary Care Provider [phone] Cornelia Jaquez DEATH CLAIM EXAMINER Primary Care Provider [phone] Chico Leger MD Unavailable [phone] Francis Cardoso MD Primary Care Provider [phone] Encounter Details Date Type Department Care Team (Latest Contact Info) Description 02/14/2017 Orders Only [facility] CONVERSION Scanning, Provider Social History Tobacco Use Types Packs/Day Years Used Date Smoking Tobacco: Never Assessed Alcohol Use Standard Drinks/Week Comments No 0 (1 standard drink = 0.6 oz pur e alcohol) Comments Unknown Sex and Gender Information Value Date Recorded Sex Assigned at Not on file Legal Sex Female 12:44 AM SPORTS RECRUITER Gender Identity Not on file Sexual Orientation Not on file documented as of this encounter Plan of Treatment Not on file documented as of this encounter Procedures Procedure Name Priority Date/Time Associated Diagnosis Comments OBSTETRIC/GYNECOLOGY ULTRASONOGRAPHY REPORT 02/14/2017 3:20 PM CDT documented in this encounter Results * OBSTETRIC/GYNECOLOGY ULTRASONOGRAPHY REPORT (02/14/2017 3:20 PM CDT) Anatomical Region Laterality Modality Ultrasound us Provider Scanning IMG OB US PROCEDURES Final Res ult documented in this encounter Visit Diagnoses Not on filedocumented in this encounter Additional Health Concerns Infection Onset Date Last Indicated Resolved Time COVID: Suspected 01/28/2020 01/28/2020 01/29/2020 12:56 AM CDT COVID: Suspected 06/23/2021 06/23/2021 06/23/2021 5:22 PM SPORTS RECRUITER COVID: Suspected 09/13/2024 09/13/2024 09/13/2024 8:58 AM CDT documented as of this encounter Care Teams Chemical Engraver Relationship Specialty Start Date End Date No, Physician PCP - General 02/14/17 02/17/17 No, Physician PCP - General 02/18/17 02/23/17 Imelda Thomas MD [address] [place] [address] PCP - General 02/24/17 03/13/17 No, Physician PCP - General 03/14/17 03/17/17 Imelda Thomas MD [address] [place] [address] PCP - General 03/18/17 03/18/17 No, Physician PCP - General 03/21/17 11/22/17 No, Physician PCP - General 03/19/17 03/20/17 Juanito Sauceda NP [address] [place] [address] [place] [address] PCP - General 11/23/17 02/29/20 No, Physician PCP - General 03/01/20 06/15/20 Cornelia Jaquez, DEATH CLAIM EXAMINER [address] [place] [address] PCP - General 06/16/20 10/17/24 Francis Cardoso MD [address] [facility] [address] [place] [address] PCP - General Family Medicine 10/18/24 Chico Leger MD [address] [facility] [address] [place] [address] Consulting Physician Obstetrics and Gynecology 10/22/22 documented as of this encounter
--- OUTSIDE RECORDS SUMMARY | 2024-10-24 08:07 | XMS_ITS | Clinical Summary ---
Author Organization [facility] Address [address] [facility] [place] [address] Care Team Providers Care Vanstone Machine Operator Name Role Phone Shahnaz Garland MD Primary Care Provider [phone] Source Comments [facility],non-owned Affiliates and Associated Physician Practices is amultiple site organization consisting of ambulatory clinics and hospital sitesin [place], [place], [place] and [place]. This disclosure is being madepursuant to the Care Everywhere program and may not contain all information available regarding this patient. Last updated 18.[facility] Allergies No known active allergies Active Problems Problem Noted Date Diagnosed Date Encounter for supervision of high risk young multigravida, antepartum 11/03/2018 Poor growth affecting management of mother, antepartum 11/03/2018 Oligohydramnios 11/03/2018 History of eclampsia 11/03/2018 History of delivery 11/03/2018 Opiate withdrawal 07/03/2018 Bipolar I disorder 07/03/2018 Complication of in first trimester 09/2018 Social History Tobacco Use Types Packs/Day Years Used Date Smoking Tobacco: Never Assessed Comments No Sex and Gender Information Value Date Recorded Sex Assigned at Not on file Legal Sex Female 6:30 PM DERRICK BOAT CAPTAIN Gender Identity Not on file Sexual Orientation Not on file Last Filed Vital Signs Vital Sign Reading Time Taken Comments Blood Pressure 143/78 07/03/2018 3:41 PM DERRICK BOAT CAPTAIN Pulse 96 07/03/2018 3:41 PM DERRICK BOAT CAPTAIN Temperature 36.7 C (98 F) 07/03/2018 3:41 PM DERRICK BOAT CAPTAIN Respiratory Rate 16 07/03/2018 3:41 PM DERRICK BOAT CAPTAIN Oxygen Saturation 100% 07/03/2018 3:41 PM DERRICK BOAT CAPTAIN Inhaled Oxygen Concentration - - Weight 83.9 kg (185 lb) 07/03/2018 3:41 PM DERRICK BOAT CAPTAIN Height 167.6 cm (5' 6 ) 07/03/2018 3:41 PM DERRICK BOAT CAPTAIN Body Mass Index 29.86 07/03/2018 3:41 PM DERRICK BOAT CAPTAIN Plan of Treatment Health Maintenance Due Date Last Done Comments HIV SCREENING 11/21/2003 HEPATITIS C SCREENING 11/16/2006 DTAP/TDAP/TD VACCINES (1 - Tdap) 11/21/2007 HEPATITIS B VACCINE (1 of 3 - 19+ 3-dose series) 11/21/2007 COVID-19 VACCINE ( - 2023-2 5 season) 2024 INFLUENZA VACCINE (Season Ended) 2025 ZOSTER VACCINE (1 of 2) 2038 HIB VACCINE Aged Out No longer eligi ble based on patient's age to complete this topic HPV VACCINE Aged Out No longer eligi ble based on patient's age to complete this topic MENINGOCOCCAL (Group B) VACC INE SHARED DECISION-MAKING Aged Out No longer eligibl e based on patient's age to complete this topic MENINGOCOCCAL GROUPS A/C/Y/W VACCINE Aged Out No longer eligible b ased on patient's age to complete this topic PNEUMOCOCCAL VACCINE Aged Out No long er eligible based on patient's age to complete this topic Insurance [address] [place] [id number] [facility] [place] [address] MEDICAID - [id number] Advance Directives * Full Code (Latest Code Status on File) Date Activated Date Inactivated Comments 07/03/2018 4:52 PM 07/03/2018 7:42 PM Care Teams Vanstone Machine Operator Relationship Specialty Start Date End Date Shahnaz Garland MD [facility] [place] [address] PCP - General Family Medicine 07/03/18
--- OUTSIDE RECORDS SUMMARY | 2024-10-24 08:07 | XMS_ITS | Encounter Summary ---
Author Organization [facility] Address [address] [place] [address] Phone Care Team Providers Care Epoxy Specialist Name Role Phone Gisele, Cornelia Denis APRN, CNP Primary Care Provider Esther Cleary APRN, CNP Unavailable Encounter Details Date Type Department Care Team (Late Contact Info) Description 08/27/2024 Results Follow-Up [facility] - Pulmonology & Sleep Medicine [facility] [address] [place] [phone] Esther Cleary APRN, CNP [address] [address] HOME SLEEP STUDY UNATTENDED TYPE III Social History Tobacco Use Types Packs/Day Years [...] Encounters Date Type Department Care Team (Late Contact Info) Description 10/25/2024 10:00 AM CDT Office Visit [facility] [address] [place] [phone] Tiffanie Sosa Gloria, PAC [address] [place] [address] Discharge Disposition: Discharged to home or Selfcare 11/01/2024 8:30 AM CDT Office Visit [facility] - Pulmonology & Sleep Medicine - [place] [address] [place] [address] Esther Cleary APRN, LACEY [address] [address] documented as of this encounter Visit Diagnoses Not on filedocumented in this encounter Care Teams Epoxy Specialist Relationship Specialty Start Date End Date Cornelia Jaquez APRN, LACEY [address] [place] [address] PCP - General Advanced Practice Nurse 03/04/23 Esther Cleary APRN, LACEY [address] [address] Nurse Practitioner Advanced Practice Nurse 08/02/24 documented as of this encounter
--- OUTSIDE RECORDS SUMMARY | 2024-10-24 08:07 | XMS_ITS | Clinical Summary ---
Author Organization [facility] Address [address] [place] [address] Phone Care Team Providers Care Bee Farmer Name Role Phone Unavailable Primary Care Provider Unavailabl e Allergies Active Allergy Reactions Criticality Noted Date Comments Divalproex Rash Low 10/31/2014 Rice Anaphylaxis High 01/05/2020 Tramadol Unknown 10/25/2014 Medications levothyroxine 150 mcg tablet Take 150 mcg by mouth daily lens matcher. Active hydrOXYzine HCL (ATARAX) 50 mg tablet Take 1 Tablet (50 mg) by mouth every 4 hours as needed for Anxiety. 15 Tablet 01/23/2020 3:03 PM CDT 0 Active albuterol HFA 90 mcg inhaler Take 2 Puffs by inhalation every 6 hours as needed for Shortness of Breath. 8.5 Gram 01/23/2020 3:03 PM CDT 0 Active nicotine (NICODERM CQ) 14 mg/24 hr patch Apply 1 Patch to skin as directed 1 time daily as needed for smoking cessation. 14 Patch 01/23/2020 3:03 PM CDT 0 Active Active Problems Problem Noted Date Diagnosed Date Constipation 01/15/2020 Abdominal cramps 01/15/2020 Bipolar affective disorder, current episode mixe d 01/06/2020 Bipolar affective disorder, current episode manic with psychotic symptoms 01/05/2020 Lumbago of lumbar region with sciatica 5 Tobacco use disorder 10/31/2014 Methadone use Hyperkalemia Acquired hypothyroidism Acute pulmonary embolism Allergic reaction Cellulitis of right leg Hypoxia Pneumonia, unspecified organism Social History Tobacco Use Types Packs/Day Years [...] Sign Reading Time Taken Comments Blood Pressure 139/93 01/23/2020 1:45 PM CDT Pulse 96 01/23/2020 1:45 PM CDT Temperature 36.9 C (98.4 F) 01/23/2020 1:45 PM CDT Respiratory Rate 18 01/23/2020 1:45 PM CDT Oxygen Saturation 97% 01/23/2020 1:45 PM CDT Inhaled Oxygen Concentration - - Weight 113.7 kg (250 lb 9.6 oz) 01/22/2020 7:19 AM CDT Height 177.8 cm (5' 10 ) 01/19/2020 10: 05 PM CDT Body Mass Index 35.96 01/19/2020 10:05 PM CDT Plan of Treatment Health Maintenance Due Date Last Done Comments HEPATITIS B VACCINES (1 of 3 - 19+ 3-dose series) 11/21/2007 HPV/Cotest (21-29) 2009 CERVICAL CANCER SCREENING 2018 HPV/Cotest (30-65) 2018 PAP SMEAR 2018 INFLUENZA VACCINE (#1) 2024 DTAP/TDAP/TD VACCINES (2 - T d or Tdap) 07/29/2025 07/29/2015 HPV VACCINES Aged Out No longer eligi ble based on patient's age to complete this topic Insurance [address] [place] [id number] [facility] MEDICAID [address] [place] [address] RX [employer] Medicare Part D [address] [place] [id number] [facility] PLAN MEDICAID Advance Directives For more information, please contact: [phone] * Full Code (Latest Code Status on File) Date Activated Date Inactivated Comments 01/20/2020 9:04 AM 01/23/2020 6:35 PM * Full Code Date Activated Date Inactivated Comments 01/05/2020 9:32 PM 01/19/2020 10:02 PM
--- OUTSIDE RECORDS SUMMARY | 2024-10-24 08:07 | XMS_ITS | Clinical Summary ---
Author Organization [facility] Address [address] [place] [address] Phone Care Team Providers Care Guard Supervisor Name Role Phone Cornelia Jaquez APRN, LACEY Primary Care Provider Esther Cleary APRN, CNP Unavailable Allergies Active Allergy Reactions Criticality Noted Date Comments Divalproex Sodium Hives 06/13/2015 Tramadol Nausea 06/13/2015 Trazodone Swelling 01/25/2020 Medications busPIRone (BUSPAR) 10 MG Tablet 20 mg 2 times daily. 3 Active lithium (LITHOBID) 300 MG Tablet Controlled Release 600 mg 2 times daily. 3 Active albuterol 108 (90 Base) MCG/ACT Aerosol Solution take 2 Puffs by inhalation every 4 hours as needed. 0 Active acetaminophen (TYLENOL) 500 MG Tablet Take 500 mg by mouth every 4 hours as needed. Active Multiple Vitamins-Minerals (WOMENS MULTI PO)Indications:2 tabs daily Take by mouth daily. Indications: 2 tabs daily Active naproxen (NAPROSYN) 500 MG Tablet Take 1 Tablet by mouth 2 times daily as needed for Mild or more severe pain. 20 Tablet 3 Active ergocalciferol (VITAMIN D) 63014 UNIT Capsule Take 50,000 Units by mouth once a week. 3 Active ibuprofen (MOTRIN) 800 MG Tablet Take 800 mg by mouth every 6 hours as needed for Mild or more severe pain. 4 Active levothyroxine (SYNTHROID) 150 MCG Tablet Take 150 mcg by mouth daily. Active Fluticasone-Umecl idin-Vilant 100-62.5-25 MCG/ACT AEROSOL POWDER, BREATH ACTIVATEDIndicati ons:Mild intermittent asthma without complication take 1 Puff by inhalation daily. 1 Each 5 5 Active Active Problems Problem Noted Date Diagnosed Date Mild intermittent asthma without complication Personal history of tobacco use 02/03/2023 Iron deficiency anemia secon nathalia to inadequate dietary iron intake 01/07/2023 Leukocytosis Thrombocytosis Obesity, Class II, BMI 35-39.9 Fatigue Snoring Encounters Date Type Department Care Team Description 10/23/2024 Travel 10/12/2024 Results Follow-Up [facility] Oncology Services [address] [place] [phone] Tiffanie Sosa Gloria, PAC ANTINUCLEAR ANTIBODY (REZA), TITER IF POS, IMMUNOFIXATION W/ ELECTROPHORESIS SERUM, PERIPHERAL BLOOD, FLOW CYTOMETRY, Additional followed-up results: 4 10/05/2024 Travel 10/03/2024 Travel 09/21/2024 8:00 AM CDT Office Visit [facility] On[facility] Services [address] [place] [phone] Tiffanie Sosa, PAC Leukocytosis, unspecified type (Primary Dx); Thrombocytosis; Iron deficiency anemia secondary to inadequate dietary iron intake Discharge Disposition: Discharged to home or Selfcare 09/21/2024 Travel 09/19/2024 Travel 09/15/2024 Telephone [facility] - Pulmonology & Sleep Medicine - [place] [address] [place] [address] Esther Cleary, PRINCIPAL STATISTICAL SCIENTIST, TECHNICAL MAINTENANCE TECHNICIAN 09/14/2024 Results Follow-Up [facility] Oncology Services [address] [place] [phone] Tiffanie Sosa, PAC FOLIC ACID (FOLATE), FERRITIN, CMP (COMPREHENSIVE METABOLIC PANEL), Additional followed-up results: 3 09/14/2024 Travel 09/14/2024 Telephone [facility] [address] [place] [address] Ian Tiffanie Gloria, [facility] 08/27/2024 Results Follow-Up [facility] Pulmonology & Sleep Medicine [facility] [address] [place] [address] Esther Cleary APRN, CNP HOME SLEEP STUDY UNATTENDED TYPE III 08/27/2024 Telephone [facility] Pulmonology & Sleep Medicine [facility] [address] [place] [address] Esther Cleary APRN, CNP 08/24/2024 8:00 AM BASIN CLEANER Outpatient Clinic Visit [facility] Sleep Lab [address] [place] [address] Esther Cleary APRN, CNP Snoring Discharge Disposition: Discharged to home or Selfcare 08/23/2024 8:39 AM BASIN CLEANER - 08/23/2024 11:59 PM BASIN CLEANER Hospital Encounter [facility] Respiratory Therapy [address] [place] [address] Esther Cleary APRN, LACEY Discharge Disposition: Discharged to home or Selfcare 08/23/2024 Transcribe Orders [facility] Sleep Lab [address] [place] [address] Esther Cleary APRN, CNP Snoring (Primary Dx) 08/23/2024 Travel 08/03/2024 Telephone [facility] Pulmonology & Sleep Medicine [facility] [address] [place] [address] Esther Cleary APRN, CNP 08/03/2024 Telephone [facility] Pulmonology & Sleep Medicine [facility] [address] [place] [address] Esther Cleary APRN, CNP 08/02/2024 8:30 AM BASIN CLEANER [facility] - [facility] [address] [place] [address] Esther Cleary APRN, CNP Mild intermittent asthma without complication (Primary Dx); Snoring; Personal history of tobacco use; Obesity, Class II, BMI 35-39.9 Discharge Disposition: Discharged to home or Selfcare 08/02/2024 Transcribe Orders [facility] [address] [place] [address] Esther Cleary APRN, CNP Snoring (Primary Dx) 08/02/2024 Travel from Last 3 Months Family History Medical History Relation Name Comments Cancer Maternal Grandmother Diabetes Maternal Grandmother Cancer Mother Relation Name Status Comments Father Pt does not kno w her father Maternal Grandmother Mother Social History Tobacco Use Types Packs/Day Years [...] Sign Reading Time Taken Comments Blood Pressure 137/93 09/21/2024 7:57 AM CDT Pulse 93 09/21/2024 7:57 AM CDT Temperature 36.8 C (98.3 F) 09/21/2024 7:57 AM CDT Respiratory Rate 18 09/21/2024 7:57 AM CDT Oxygen Saturation 98% 09/21/2024 7:57 AM CDT Inhaled Oxygen Concentration - - Weight 122.5 kg (270 lb 1.6 oz) 09/21/2024 7:57 AM CDT Height 175.3 cm (5' 9 ) 09/21/2024 7:57 AM CDT Body Mass Index 39.89 09/21/2024 7:57 AM CDT Plan of Treatment Upcoming Encounters Date Type Department Care Team (Late st Contact Info) Description 10/25/2024 10:00 AM CDT [facility] [address] [place] [phone] Tiffanie Sosa, PAC [address] [place] [address] Discharge Disposition: Discharged to home or Selfcare 11/01/2024 8:30 AM CDT Office Visit [facility] - Pulmonology & Sleep Medicine [facility] [address] [place] [address] Esther Cleary APRN, TECHNICAL MAINTENANCE TECHNICIAN [address] [address] Health Maintenance Due Date Last Done Comments Hepatitis C Virus (HCV) Screening 1988 Pneumococcal Immunization Combined (1 of 2 - PCV) 11/21/2007 Pap Smear 2009 Cervical Cancer Screening (CCS) 2018 HPV/Cotest 2018 SARS-COV-2 Immunization ( - 2023- season) 2024 Influenza Immunization (Season Ended) 2025 Respiratory Syncytial Virus (RSV) Immunization (Adult) (1 - 1-dose 75+ series) 11/21/2063 Hepatitis B Immunization Completed 000, 04/16/1999, 01/23/1994 DTaP/Tdap/Td Immunization Discontinued 2015, 01/23/1994, 11/07/1992, Additional history exists TdaP Immunization Completed 07/29/2015 Meningococcal Immunization (ACWY) Aged Out No longer eligible based on patient's age to complete this topic Rotavirus Immunization Aged Out No lo nger eligible based on patient's age to complete this topic Procedures Procedure Name Priority Date/Time Associated Diagnosis Comments CBC WITH AUTO DIFFERENTIAL Routine 10/05/2024 11:36 AM CDT Leukocytosis, unspecified type FISH BCR/ABL T(9;22) FOR CML/ALL Routine 10/05/2024 11:36 AM CDT Leukocytosis, unspecified type PERIPHERAL BLOOD, FLOW CYTOMETRY Routine 10/05/2024 11:36 AM CDT Leukocytosis, unspecified type RETICULOCYTE COUNT (RETIC) Routine 10/05/2024 11:36 AM CDT Leukocytosis, unspecified type LACTATE DEHYDROGENASE (LD) Routine 10/05/2024 11:36 AM CDT Leukocytosis, unspecified type IMMUNOFIXATION W/ ELECTROPHORESIS SERUM Routine 10/05/2024 11:36 AM CDT Leukocytosis, unspecified type ANTINUCLEAR ANTIBODY (REZA), TITER IF POS Routine 10/05/2024 11:36 AM CDT Leukocytosis, unspecified type COMPLETE BLOOD COUNT (CBC) WITH DIFF Routine 10/05/2024 11:36 AM CDT Leukocytosis, unspecified type CBC WITH AUTO DIFFERENTIAL Routine 09/14/2024 12:01 PM CDT Iron deficiency anemia secondary to inadequate dietary iron intake Leukocytosis, unspecified type Thrombocytosis IRON,TRANSFERN,CALC.TIB C,%SAT Routine 09/14/2024 12:01 PM CDT Iron deficiency anemia secondary to inadequate dietary iron intake Leukocytosis, unspecified type Thrombocytosis VITAMIN B12 Routine 09/14/2024 12:01 PM CDT Iron deficiency anemia secondary to inadequate dietary iron intake Leukocytosis, unspecified type Thrombocytosis COMPLETE BLOOD COUNT (CBC) WITH DIFF Routine 09/14/2024 12:01 PM CDT Iron deficiency anemia secondary to inadequate dietary iron intake Leukocytosis, unspecified type Thrombocytosis CMP (COMPREHENSIVE METABOLIC PANEL) Routine 09/14/2024 12:01 PM CDT Iron deficiency anemia secondary to inadequate dietary iron intake Leukocytosis, unspecified type Thrombocytosis FERRITIN Routine 09/14/2024 12:01 PM CDT Iron deficiency anemia secondary to inadequate dietary iron intake Leukocytosis, unspecified type Thrombocytosis FOLIC ACID (FOLATE) Routine 09/14/2024 1 2:01 PM CDT Iron deficiency anemia secondary to inadequate dietary iron intake Leukocytosis, unspecified type Thrombocytosis HOME SLEEP STUDY UNATTENDED TYPE III Routine 08/25/2024 Snoring COMPLETE PFT W + W/O BRONCHODILATOR Routine 08/23/2024 9:30 AM BASIN CLEANER Mild intermittent asthma without complication Personal history of tobacco use from Last 3 Months Results * FISH BCR/ABL T(9;22) FOR CML/ALL (10/05/2024 11:36 AM CDT) FINAL DIAGNOSIS Normal nuc fiorella(ABL1,BCR)x2[20 0] 10/11/2024 8:50 PM CDT [facility] at 2050 CDT Comment Professional component performed by Tabitha Workman, Ph.D., [facility], [facility] [address], [place], [place] (CLIA #: [id number]). 10/11/2024 8:50 PM CDT [facility] AP CLINICAL INDICATION leukocytosis 10/11/2024 8:50 PM CDT [facility] AP METHOD Cells from the sample were cultured and harvested according to standard cytogenetic procedures. Slides were processed using fluorescence in situ hybridization (FISH) methods. The hybridization pattern was scored at the microscope. Images of selected cells were prepared using an image analysis system. No. of Nuclei Scored: 200 No. of Images Captured: 2 10/11/2024 8:50 PM CDT [facility] CYTOGENETICS INTERP Molecular cytogenetic analysis was performed utilizing the BCR::ABL1 dual fusion ([employer] probe, which hybridizes to the (major and minor) breakpoint cluster region (BCR) on the long arm of chromosome 22, at 22q11.2, and the ABL1 oncogene region on the long arm of chromosome 9, at 9q34, to assess for the presence of the [place] chromosome 9;22 translocation. This test will not detect other/additional abnormalities. The abnormal cutoff is 2.3% of nuclei scored. Results revealed a normal hybridization pattern, indicating no BCR::ABL1 rearrangement in the interphase nuclei scored. If a low percentage of positive cells or minimal residual disease is suspected, one may wish to consider analysis by RT-PCR. 10/11/2024 8:50 PM CDT [facility] AP CYTOGENETICS DISCLAIMER This test was developed and its performance characteristics determined by the [facility]. It has not been cleared or approved by the U.S. Food and Drug Administration. FDA does not require this test to go through premarket FDA review. This test is used for clinical purposes. It should not be regarded as investigational or for research. This laboratory is certified under the Clinical Laboratory Improvement Amendments (CLIA) as qualifed to perform high complexity clinical laboratory testing. 10/11/2024 8:50 PM CDT [facility] Case Report Surgical Pathology Report Case: [id number] Authorizing Provider: Tiffanie Sosa PAC Collected: 10/05/2024 11:36 AM Ordering Location: [facility] Received: 10/05/2024 12:20 PM [facility] Oncology Services Pathologist: Tabitha Workman, PhD Specimen: Blood, BCR::ABL 10/11/2024 8:50 PM CDT [facility] Other BLOOD SPECIMEN / Unknown Non-Phlebotomy Collection / Unknown 10/05/2024 11:36 AM CDT 10/05/2024 12:20 PM CDT Tiffanie Sosa PAC PATHOLOGY/CYTOLOGY ORDERA BLES Final Result [facility] [address] [place] [address], [place] * (ABNORMAL) CBC WITH AUTO DIFFERENTIAL (10/05/2024 11:36 AM CDT) Only the most recent of2 resultswithin the time period is included. WBC 12.41(H) 4.00 - 12.00 10(3)/mcL 10/05/2024 12:22 PM CDT [facility] RBC 4.63 3.80 - 5.30 10(6)/mcL 10/05/2024 12:22 PM CDT [facility] HEMOGLOBIN (HGB) 13.2 12.0 - 15.8 g/dL 10/05/2024 12:22 PM CDT [facility] HEMATOCRIT (HCT) 42.0 36.0 - 47.0 % 10/05/2024 12:22 PM CDT [facility] MCV 90.7 82.0 - 96.0 fL 10/05/2024 12:22 PM CDT [facility] MCH 28.5 26.0 - 34.0 pg 10/05/2024 12:22 PM CDT [facility] MCHC 31.4 31.0 - 36.0 g/dL 10/05/2024 12:22 PM CDT [facility] PLATELET COUNT 548(H) 140 - 440 10(3)/mcL 10/05/2024 12:22 PM CDT [facility] RDW 13.0 11.8 - 15.5 % 10/05/2024 12:22 PM CDT [facility] MPV 8.4(L) 9.7 - 12.4 fL 10/05/2024 12:22 PM CDT [facility] NEUTROPHILS 74.0(H) 47.0 - 73.0 % 10/05/2024 12:22 PM CDT [facility] LYMPHOCYTES 17.4(L) 18.0 - 42.0 % 10/05/2024 12:22 PM CDT [facility] MONOCYTES 4.8 4.0 - 12.0 % 10/05/2024 12:22 PM CDT [facility] EOSINOPHILS 3.2 0.0 - 5.0 % 10/05/2024 12:22 PM CDT [facility] BASOPHILS 0.6 0.0 - 1.0 % 10/05/2024 12:22 PM CDT [facility] ABSOLUTE NEUTROPHILS 9.17(H) 1.60 - 7.70 10(3)/mcL 10/05/2024 12:22 PM CDT [facility] ABSOLUTE LYMPHOCYTES 2.16 1.30 - 3.20 10(3)/mcL 10/05/2024 12:22 PM CDT [facility] ABSOLUTE MONOCYTES 0.60 0.20 - 1.00 10(3)/mcL 10/05/2024 12:22 PM CDT [facility] ABSOLUTE EOSINOPHIL 0.40 0.00 - 0.40 10(3)/[facility] 10/05/2024 12:22 PM CDT [facility] ABSOLUTE BASOPHILS 0.08 0.00 - 0.10 10(3)/[facility] 10/05/2024 12:22 PM CDT [facility] NRBC PER 100 WBC 0 10/06/19 25 12:22 PM CDT [facility] Blood Venipuncture / Unknown 10/05/2024 11:36 AM CDT 10/05/2024 12:19 PM CDT Tiffanie Sosa [facility] HEMATOLOGY ORDERABLES Fin al Result [facility] [address] [place] [address] * PERIPHERAL BLOOD, FLOW CYTOMETRY (10/05/2024 11:36 AM CDT) FINAL DIAGNOSIS Peripheral blood, flow cytometric analysis: - No abnormal lymphoid population or increased circulating blasts detected. 11:01 AM CDT [facility] at 1101 CDT Specimen Source Received in an EDTA anticoagulated tube is 3mL peripheral blood. 11:01 AM CDT [facility] Microscopic Description Peripheral blood smear review shows features concordant with flow cytometric findings. Specimen processed and evaluated at [facility], [place], [place]. This document was completed utilizing speech recognition software. Grammatical errors, random word insertions, pronoun errors, and incomplete sentences are an occasional consequence of this system due to software limitations, ambient noise, and hardware issues. Any formal questions or concerns about the content, text or information contained within the body of this dictation should be directly addressed to the provider for clarification. 11:01 AM CDT [facility] Immunophenotypic Findings Flow cytometric analysis shows a heterogeneous cellular population. Blasts are not increased. Immunophenotypically unremarkable/nonspeci fic T-cells (CD4:CD8 = 2.9) and polytypic B-cells are present. CELL POPULATIONS: 77% granulocytes, 4% monocytes, 17% lymphocytes, 1% basophils, <1% blasts. Total percentage may be affected by rounding and the presence of debris signals. 11:01 AM CDT [facility] Phenotyping Markers Utilized Flow markers performed (23): CD2, CD3, CD4, CD5, CD7, CD8, CD10, CD13, CD15, CD19, CD20, CD33, CD34, CD38, CD45, CD56, CD117, CD123, CD200, kappa, lambda, HLA-DR, TCR gamma/delta This test was developed and its performance characteristics determined by [facility]. It has not been cleared or approved by the U.S. Food and Drug Administration. 11:01 AM CDT [facility] Case Report Flow Cytometry Repor t Case: [id number] Authorizing Provider: Tiffanie Sosa PAC Collected: 10/05/2024 11:36 AM Ordering Location: [facility] Received: 10/05/2024 12:20 PM [facility] Oncology Services Pathologist: Sd Russell MD Specimen: Blood, blood 11:01 AM CDT [facility] Blood BLOOD SPECIMEN / Unknown Venipuncture / Unknown 10/05/2024 11:36 AM CDT 10/05/2024 12:20 PM CDT Tiffanie MOREIRA PATHOLOGY/CYTOLOGY ORDERA BLES Final Result Performing Organization Address [facility] Co de Phone Number [facility] [address] [place] [address], [place] * (ABNORMAL) RETICULOCYTE COUNT (RETIC) (10/05/2024 11:36 AM CDT) RETICULOCYTES 2.9(H) 0.5 - 2.0 % 10/05/2024 12:22 PM CDT [facility] Blood Venipuncture / Unknown 10/05/2024 11:36 AM CDT 10/05/2024 12:19 PM CDT [facility] HEMATOLOGY ORDERABLES Fin al Result Performing Organization Address [facility] Co de Phone Number [facility] [address] [place] [address] * LACTATE DEHYDROGENASE (LD) (10/05/2024 11:36 AM CDT) Pathologist [facility] LDH 156 125 - 220 U/L 10/05/2024 1:16 PM CDT [facility] Blood Venipuncture / Unknown 10/05/2024 11:36 AM CDT 10/05/2024 12:18 PM CDT [facility] CHEMISTRY ORDERABLES Mel l Result Performing Organization Address [facility] Co de Phone Number [facility] [address] [place] [address] * (ABNORMAL) IMMUNOFIXATION W/ ELECTROPHORESIS SERUM (10/05/2024 11:36 AM CDT) TOTAL PROTEIN 6.8 6.0 - 8.0 g/dL 10/07/2024 12:54 PM CDT [facility] % ALBUMIN 51.4(L) 55.8 - 66.7 % 10/07/2024 12:54 PM CDT [facility] ALBUMIN SERUM 3.5 2.5 - 5.4 g/dL 10/07/2024 12:54 PM T [facility] % ALPHA 1 GLOBULIN 3.5 2.9 - 4.9 % 10/07/2024 12:54 PM T [facility] ALPHA 1 0.2 0.2 - 0.4 g/dL 10/07/2024 12:54 PM [facility] % ALPHA 2 GLOBULIN 13.6(H) 7.1 - 11.8 % 10/07/2024 12:54 PM T [facility] ALPHA 2 0.9 0.5 - 1.0 g/dL 10/07/2024 12:54 PM [facility] % BETA 16.0(H) 8.4 - 13.1 % 10/07/2024 12:54 PM [facility] BETA-GLOBULIN 1.1 0.5 - 1.1 g/dL 10/07/2024 12:54 PM [facility] % GAMMA GLOBULIN 15.5 11.1 - 18.8 % 10/07/2024 12:54 PM [facility] GAMMA 1.1 0.7 - 1.5 g/dL 10/07/2024 12:54 PM [facility] IMMUNOGLOBULIN G 934 552 - 1,631 mg/dL 10/07/2024 12:54 PM [facility] IMMUNOGLOBULIN A 181 65 - 421 mg/dL 10/07/2024 12:54 PM [facility] IMMUNOGLOBULIN M 148 33 - 293 mg/dL 10/07/2024 12:54 PM [facility] INTERPRETATION SERUM No abnormal protein band is detected by serum protein electrophoresis. Serum immunofixation electrophoresis is negative for monoclonal immunoglobulins. Reviewed by Cole Garcia, Ph.D. 10/07/2024 12:54 PM [facility] A/G RATIO, SERUM 1.1 10/08/19 12:54 PM [facility] Blood Venipuncture / Unknown 10/05/2024 11:36 AM CDT 10/05/2024 12:18 PM CDT Narrative [facility] - 10/07/2024 12:54 PM CDT Reviewed by Morgan Do M.D. [facility] CHEMISTRY ORDERABLES Mel l Result Performing Organization Address [facility] Co de Phone Number [facility] [address] [place] [address], [place] * ANTINUCLEAR ANTIBODY (REZA), TITER IF POS (10/05/2024 11:36 AM CDT) REZA SCREEN Negative Negative titer 10/08/2024 2:12 PM CDT [facility] Comment: Antinuclear autoantibodies not detected by IFA at a 1:80 screening dilution of HEp-2 cells. REZA TITER Not Applicable Negative, See comment, Not Applicable titer 10/08/2024 2:12 PM CDT [facility] Comment: Antinuclear autoantibodies not detected by IFA at a 1:80 screening dilution of HEp-2 cells. REZA PATTERN NOT APPLICABLE 10/08/2024 2:12 PM CDT [facility] Blood Venipuncture / Unknown 10/05/2024 11:36 AM CDT 10/05/2024 12:18 PM CDT [facility] PAC IMMUNOLOGY ORDERABLES Fin al Result Performing Organization Address [facility] Co de Phone Number [facility] [address] [place] [address], [place] * (ABNORMAL) IRON,TRANSFERN,CALC.TIBC,%SAT (09/14/2024 12:01 PM CDT) IRON 30 25 - 156 mcg/dL 09/14/2024 12:46 PM CDT [facility] TRANSFERRIN 218 180 - 382 mg/dL 09/14/2024 12:46 PM CDT [facility] TIBC, CALCULATED 273 265 - 497 mcg/dL 09/14/2024 12:46 PM CDT [facility] % SATURATION * 11(L) 15 - 62 % 09/14/2024 12:46 PM CDT [facility] Blood Venipuncture / Unknown 09/14/2024 12:01 PM CDT 09/14/2024 12:13 PM CDT [facility] PAC CHEMISTRY ORDERABLES Mel l Result [facility] [address] [place] [address] * VITAMIN B12 (09/14/2024 12:01 PM CDT) VITAMIN B12 514 213 - 816 pg/mL 09/14/2024 1:15 PM CDT [facility] Blood Venipuncture / Unknown 09/14/2024 12:01 PM CDT 09/14/2024 12:13 PM CDT [facility] PAC CHEMISTRY ORDERABLES Mel l Result Performing Organization Address City/[facility]/ZIP Co de Phone Number [facility] [address] [place] [address] * FOLIC ACID (FOLATE) (09/14/2024 12:01 PM CDT) FOLATE 14.5 7.0 - 31.4 ng/mL 09/14/2024 1:15 PM CDT [facility] IS THE PATIENT REQUIRED TO BE FASTING? No 09/14/2024 1:15 PM CDT [facility] Blood Venipuncture / Unknown 09/14/2024 12:01 PM CDT 09/14/2024 12:13 PM CDT [facility] PAC CHEMISTRY ORDERABLES Mel l Result [facility] [address] [place] [address] * (ABNORMAL) FERRITIN (09/14/2024 12:01 PM CDT) FERRITIN 278(H) 5 - 204 ng/mL 09/14/2024 1:02 PM CDT [facility] Blood Venipuncture / Unknown 09/14/2024 12:01 PM CDT 09/14/2024 12:13 PM CDT Tiffanie Sosa PAC CHEMISTRY ORDERABLES Mel l Result [facility] [address] [place] [address] * (ABNORMAL) CMP (COMPREHENSIVE METABOLIC PANEL) (09/14/2024 12:01 PM CDT) Pathologist [facility] SODIUM 135(L) 136 - 145 mmol/L 09/14/2024 12:46 PM CDT [facility] POTASSIUM 4.3 3.5 - 5.1 mmol/L 09/14/2024 12:46 PM CDT [facility] CHLORIDE 104 98 - 107 mmol/L 09/14/2024 12:46 PM CDT [facility] CO2, VENOUS 24 22 - 30 mmol/L 09/14/2024 12:46 PM CDT [facility] ANION GAP 11.3 <18.0 mmol/L 09/14/2024 12:46 PM CDT [facility] GLUCOSE 187(H) 70 - 99 mg/dL 09/14/2024 12:46 PM CDT [facility] BUN 10 5 - 18 mg/dL 09/14/2024 12:46 PM CDT [facility] CREATININE, BLOOD 0.78 0.60 - 1.00 mg/dL 09/14/2024 12:46 PM CDT [facility] BUN/CREATININE RATIO 13 12 - 20 ratio 09/14/2024 12:46 PM CDT [facility] TOTAL PROTEIN 7.9 6.0 - 8.0 g/dL 09/14/2024 12:46 PM CDT [facility] ALBUMIN 4.3 3.5 - 5.0 g/dL 09/14/2024 12:46 PM CDT [facility] A/G RATIO 1.2 1.0 - 2.2 09/14/2024 12:46 PM CDT [facility] CALCIUM 9.8 8.7 - 10.5 mg/dL 09/14/2024 12:46 PM CDT [facility] T BILI 0.2 0.2 - 1.2 mg/dL 09/14/2024 12:46 PM CDT [facility] SGOT (AST) 18 <43 U/L 09/14/2024 12:46 PM CDT [facility] SGPT (ALT) 24 <56 U/L 09/14/2024 12:46 PM CDT [facility] ALKALINE PHOSPHATASE 103 40 - 150 U/L 09/14/2024 12:46 PM CDT [facility] IS THE PATIENT REQUIRED TO BE FASTING? No 09/14/2024 12:46 PM CDT [facility] GFR, ESTIMATED >60 >=60 09/14/2024 12:46 PM CDT [facility] Comment: Creatinine Clearance is the preferred criteria for selecting drug dose adjustments in renally impaired patients. The GFR is provided as additional pertinent clinical information. GFR is reported in mL/min/1.73 sq m. Calculation based on the Chronic Kidney Disease Epidemiology Collaboration (CKD- EPI) equation refit without adjustment for race. GFR, EST. >60 >=60 025 12:46 PM CDT [facility] GFR, EST. NONAFRICAN >60 >=60 09/14/2024 12:46 PM CDT [facility] Blood Venipuncture / Unknown 09/14/2024 12:01 PM CDT 09/14/2024 12:13 PM CDT Tiffanie Sosa PAC CHEMISTRY ORDERABLES Mel l Result [facility] [address] [place] [address] * HOME SLEEP STUDY UNATTENDED TYPE III (08/25/2024) Esther Cleary APRN, CNP SLEEP CENTER ORDERABL ES Final Result from Last 3 Months Insurance MEDICAID [employer] Care Teams Guard Supervisor Relationship Specialty Start Date End Date Cornelia Jaquez APRN, CNP [address] [place] [address] PCP - General Advanced Practice Nurse 03/04/23 Esther Cleary APRN, CNP [address] [address] Nurse Practitioner Advanced Practice Nurse 08/02/24
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
[2024-10-24 08:13] VITALS: BP 129/65; PULSE 98; RESP 20; TEMP 36.5; O2SAT 100
[2024-10-24 08:35] LABS: EDCOVIDSCREEN Negative (Negative); EDINFLUASCREEN Negative (Negative); EDINFLUBSCREEN Negative (Negative); EDSTREPNEGPOS1 Negative (Negative)
--- NOTE | 2024-10-24 08:38 | ED_ITS ---
HPI - General Adult General Chief complaint: Upper Respiratory Infection Stated complaint: Sore Throat/Cough Source: patient Mode of arrival: ambulatory Limitations: no limitations History of Present Illness HPI narrative: Patient presents for evaluation of sick symptoms. She reports sore throat and cough for the past five days. She denies any fever, chills, nausea or diarrhea. She states her coughing episodes are so severe that she has vomited during them. She has also experienced SOB. No recent sick contacts to her knowledge. She is a former smoker. She has underlying asthma. She has tried taking cough drops for her symptoms. Related Data Home Medications ?Medication ?Instructions ?Recorded ?Confirmed ?Last Taken ?Type albuterol sulfate 90 mcg/actuation 2 puff inhalation Q4-6H PRN 08/14/22 02/11/24 Unknown History aerosol inhaler Shortness Of Breath buspirone 10 mg tablet 10 mg PO QID 08/14/22 10/24/24 Unknown History lithium carbonate 300 mg 300 mg PO QID 08/14/22 10/24/24 Unknown History tablet,extended release cholecalciferol (vitamin D3) 10 10 mcg PO DAILY 02/11/24 02/11/24 Unknown History mcg (400 unit) capsule (Vitamin D3) ferrous sulfate 325 mg (65 mg mg 02/11/24 Unknown History iron) tablet (Iron (ferrous sulfate)) magnesium 200 mg tablet 200 mg PO DAILY 02/11/24 02/11/24 Unknown History nicotine 21 mg/24 hr daily See Rx Instructions .Route .COMPLEX 02/11/24 10/24/24 Unknown History transdermal patch Allergies Allergy/AdvReac Type Severity Reaction Status Date / Time divalproex sodium (From Allergy Mild Hives Verified 10/24/24 08:22 Depakote) tramadol AdvReac Mild Nausea Verified 02/11/24 16:21 Review of Systems Review of Systems: CONSTITUTIONAL: Denies fever, chills, or sweats. EYES: Denies visual changes, redness, or discharge. ENT: Reports sore throat. Denies rhinorrhea, congestion, or otalgia. CARDIOVASCULAR: Denies chest pain, palpitations, or edema. RESPIRATORY: Reports cough and SOB GASTROINTESTINAL: Reports vomiting during coughing episodes. Denies abdominal pain, nausea, or diarrhea. GENITOURINARY: Denies dysuria or hematuria. SKIN: Denies rash or itching. MUSCULOSKELETAL: Denies back pain, joint pain, or myalgia. NEUROLOGIC: Denies headache, numbness, dizziness, or weakness. PSYCHIATRIC: Denies anxiety or depression. 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 HEAD: Normocephalic, atraumatic. EYES: PERRLA and EOMI. ENT: Nares clear, no rhinorrhea or epistaxis. Mucous membranes moist. Oropharynx without tonsillar hypertrophy exudate or other lesions. Bilateral TMs pearly landaverde nonbulging NECK: Supple. No adenopathy or masses. No carotid bruits or JVD CHEST: Clear to auscultation. No respiratory distress. No wheezes rales or rhonchi HEART: Regular rate and rhythm. No murmur heard. Normal peripheral pulses. ABDOMEN: Soft, nontender, nondistended, normal active bowel sounds. EXTREMITIES: Normal range of motion. No edema. SKIN: Warm, dry, no rash. NEURO: No focal deficits. Alert and oriented x3. PSYCH: Normal mood and affect. Course Course Emergency Course: This is a 33 year old female who presented for evaluation of sick symptoms. COVID, flu, strep negative. CXR negative. I offered to provide her with injection of steroids and neb. She declined. Her exam is consistent with viral URI. Will dc with prednisone and albuterol. Follow up with primary provider. Go to the ER for worsening symptoms. Pt in agreement with plan of care. Level of Care: Express Care Visit Vital Signs Vital signs: Vital Signs Temperature 36.5 C 10/24/24 08:13 Pulse Rate 98 10/24/24 08:13 Respiratory Rate 20 10/24/24 08:13 Blood Pressure 129/65 10/24/24 08:13 Pulse Oximetry 100 10/24/24 08:13 Oxygen Delivery Room Air 10/24/24 08:13 Temperature 36.5 C 10/24/24 08:13 Pulse Rate 98 10/24/24 08:13 Respiratory Rate 20 10/24/24 08:13 Blood Pressure 129/65 10/24/24 08:13 Pulse Oximetry 100 10/24/24 08:13 Oxygen Delivery Room Air 10/24/24 08:13 Medical Decision Making Vital Signs Vital Signs: Vital Signs Temperature 36.5 C 10/24/24 08:13 Pulse Rate 98 10/24/24 08:13 Respiratory Rate 20 10/24/24 08:13 Blood Pressure 129/65 10/24/24 08:13 Pulse Oximetry 100 10/24/24 08:13 Oxygen Delivery Room Air 10/24/24 08:13 Temperature 36.5 C 10/24/24 08:13 Pulse Rate 98 10/24/24 08:13 Respiratory Rate 20 10/24/24 08:13 Blood Pressure 129/65 10/24/24 08:13 Pulse Oximetry 100 10/24/24 08:13 Oxygen Delivery Room Air 10/24/24 08:13 Lab Data Labs: Lab Results 10/24/24 Range/Units 08:31 POC Influenza A Ag Negative (Negative) POC Influenza B Ag Negative (Negative) POC SARS CoV-2 Ag Negative (Negative) POC Grp A Strep Screen Negative (Negative) Imaging Data Radiologist's impression: EXAMINATION: XR chest 2V DATE: 10/24/2024 08:40 INDICATION: Cough TECHNIQUE: PA and lateral views of the chest were obtained. COMPARISON: None FINDINGS: A pleural parenchymal scarring at the lateral right lung base with blunting at the costophrenic angle but not the posterior sulcus. No focal airspace opacities, pulmonary edema, pleural effusion or pneumothorax. Mild thoracic spondylosis with chronic appearing mild anterior wedging at T8, T11 and T12. IMPRESSION: 1. No acute cardiopulmonary disease. Discharge Plan Discharge Clinical Impression: Acute viral syndrome Patient Disposition: Home Condition: Stable Instructions: Antibiotic Form, Upper Respiratory Infection (DC), Viral Syndrome (ED) Patient Language: Hong Konger Prescriptions: New prednisone 50 mg tablet 50 mg PO DAILY Qty: 5 0RF albuterol sulfate [Ventolin HFA] 90 mcg/actuation HFA aerosol inhaler 2 puff inhalation QID PRN (Reason: shortness of breath or wheezing) Qty: 8.5 0RF No Action nicotine 21 mg/24 hr patch 24 hour See Rx Instructions .ROUTE .COMPLEX Rx Instructions: as prescribed ferrous sulfate [Iron (ferrous sulfate)] 325 mg (65 mg iron) Tablet magnesium 200 mg Tablet 200 mg PO DAILY cholecalciferol (vitamin D3) [Vitamin D3] 10 mcg (400 unit) Capsule 10 mcg PO DAILY amoxicillin-pot clavulanate 875-125 mg tablet 1 tablet PO Q12H Qty: 20 0RF lithium carbonate 300 mg tablet extended release 300 mg PO QID buspirone 10 mg tablet 10 mg PO QID albuterol sulfate 90 mcg/actuation HFA aerosol inhaler 2 puff INHALATION Q4-6H PRN (Reason: Shortness Of Breath) Follow-up/Referrals: Joe Campoverde MD [Physician] - Time of Disposition: 09:33
== END 2024-10-24 09:37 | disposition home or self-care (01) ==
PROVIDERS: Emergency Provider Nurse Practitioner
DX: B34.9 Viral infection, unspecified (principal); Z20.822 Contact with and (suspected) exposure to COVID-19; Z87.891 Personal history of nicotine dependence; E03.9 Hypothyroidism, unspecified; J45.909 Unspecified asthma, uncomplicated; F41.9 Anxiety disorder, unspecified; F31.9 Bipolar disorder, unspecified
CPT/HCPCS: 71046; 87081; 87426; 87804; 87880; 99213; G0463